=== PATIENT | male | born 1995 | race Caucasian/White ===

== ENCOUNTER 2022-09-27 06:44 | Emergency (ER) | payer OTHER, SELFPAY ==
[2022-09-27 06:59] VITALS: BP 139/103; PULSE 98; RESP 20; TEMP 36.7; O2SAT 99
--- NOTE | 2022-09-27 07:26 | ED.GENADULT ---
HPI - General Adult General Chief complaint: Skin/Abscess/Foreign Body Stated complaint: something stuck in throat Time Seen by Provider: 09/27/22 07:11 History of Present Illness HPI narrative: This is a 26-year-old male presents ED sensation of something stuck in his throat. Patient had a gout hamburger 2 hours ago. He had a sensation of fullness and irritation right side of his neck just above his sternal notch. He tried drinking some soda which helped. patient says he feels like the majority of the sensation is gone but there is still some irritation at spot. He is able to tolerate his own secretions. He denies sensation throat tightness or difficulty breathing. His voice is normal. He denies URI symptoms or sore throat. no other complaints Related Data Home Medications Medication Instructions Recorded Confirmed albuterol sulfate 90 mcg/actuation 1 puff inhalation QID PRN 09/27/22 09/27/22 aerosol inhaler (Ventolin HFA) Shortness Of Breath Or Wheezing fluticasone furoate 100 1 inh inhalation DAILY 09/27/22 09/27/22 mcg-vilanterol 25 mcg/dose inhalation powder (Breo Ellipta) Allergies Allergy/AdvReac Type Severity Reaction Status Date / Time No Known Allergies Allergy Verified 09/27/22 06:55 Review of Systems Review of Systems: CONSTITUTIONAL: Denies night sweats. EYES: No eye pain ENT: Denies rhinorrhea CARDIOVASCULAR: Denies palpitations RESPIRATORY: Denies hemoptysis GASTROINTESTINAL: Denies hematemesis GENITOURINARY: Denies hematuria. SKIN: Denies rash MUSCULOSKELETAL: Denies myalgia. NEUROLOGIC: Denies weakness. PSYCHIATRIC: Denies delusions [facility] Past Medical History Medical History (Updated 09/27/22 @ 07:33 by Nolberto Estrella MD) Asthma Social History Social History (Updated 09/27/22 @ 07:29 by Nolberto Estrella MD) Social History: denies alcohol tobacco drugs Exam Narrative: APPEARANCE: No apparent distress. patient is speaking in full sentences, normal voice Head: no erythema of the posterior oropharynx, no evidence of thrush, EYES: EOMI, NOSE: Atraumatic NECK: Trachea midline, no palpable lymph nodes RESPIRATORY: No increased rate of breathing CARDIOVASCULAR: RRR, ABDOMINAL: Non-distended MUSCULOSKELETAl: No obvious deformities NEURO: Alert. Moving 4/4 extremities SKIN:: Warm, dry. Normal color PSYCHIATRIC: Normal affect Course Vital Signs Vital signs: Vital Signs Temperature 98.1 F 09/27/22 06:59 Pulse Rate 98 09/27/22 06:59 Respiratory Rate 20 09/27/22 06:59 Blood Pressure 139/103 H 09/27/22 06:59 Pulse Oximetry 99 09/27/22 06:59 Oxygen Delivery Room Air 09/27/22 06:59 Temperature 98.1 F 09/27/22 06:59 Pulse Rate 98 09/27/22 06:59 Respiratory Rate 20 09/27/22 06:59 Blood Pressure 139/103 H 09/27/22 06:59 Pulse Oximetry 99 09/27/22 06:59 Oxygen Delivery Room Air 09/27/22 06:59 Medical Decision Making MDM Narrative Medical decision making narrative: this is a 26-year-old male presenting with possible food impaction. Patient says that he felt like the food is going down a just has some minor irritation on his neck. He has a normal voice, he is swallowing his own secretions, he is able to pass a p.o. challenge. I discussed the option of sending him to [facility] to be evaluated by GI for food impaction versus discharge home with return precautions if his symptoms get worse. Patient is comfortable going home and will return [facility] for GI evaluation if he feels like the food impaction is still present or getting worse. Patient will be discharged. Vital Signs Vital Signs: Vital Signs Temperature 98.1 F 09/27/22 06:59 Pulse Rate 98 09/27/22 06:59 Respiratory Rate 20 09/27/22 06:59 Blood Pressure 139/103 H 09/27/22 06:59 Pulse Oximetry 99 09/27/22 06:59 Oxygen Delivery Room Air 09/27/22 06:59 Temperature 98.1 F 09/27/22 06:59 Pulse Rate 98 09/27/22 06:59 Respira
[2022-09-27 07:51] VITALS: BP 134/89; PULSE 98; RESP 20; TEMP 36.7; O2SAT 99
== END 2022-09-27 07:53 | disposition home or self-care (01) ==
PROVIDERS: Emergency Provider Emergency Medicine
DX: T18.128A Food in esophagus causing other injury, initial encounter (principal); K22.2 Esophageal obstruction; J45.909 Unspecified asthma, uncomplicated; Z79.51 Long term (current) use of inhaled steroids
CPT/HCPCS: 99281